=== PATIENT | male | born 1995 | race Caucasian/White ===

== ENCOUNTER 2021-04-29 19:00 | Emergency (ER) | payer OTHER, SELFPAY ==
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
[2021-04-29 18:59] VITALS: BP 139/87; PULSE 78; RESP 18; TEMP 36.8; O2SAT 100
--- NOTE | 2021-04-29 19:04 | PC.NURSE ---
Patient in c-collar at time of arrival by EMS.
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
[2021-04-29] MEDS: TETANUS,DIPHTHERIA,AC PERTUSSIS ADULT (0.5 ML) BOOSTRIX IM (19:37)
[2021-04-29] MEDS: IBUPROFEN 600 MG TABLET PO (19:37)
[2021-04-29 20:18] VITALS: BP 122/74; PULSE 70; RESP 18; O2SAT 99
== END 2021-04-29 20:22 | disposition home or self-care (01) ==
PROVIDERS: Emergency Provider Emergency Medicine
DX: S70.02XA Contusion of left hip, initial encounter (principal); S50.02XA Contusion of left elbow, initial encounter; S80.812A Abrasion, left lower leg, initial encounter; S80.811A Abrasion, right lower leg, initial encounter; Z23 Encounter for immunization; V43.52XA Car driver injured in collision with other type car in traffic accident, initial encounter
CPT/HCPCS: 71046; 73080; 73502; 90471; 90715; 99284; A9270